=== PATIENT | male | born 1975 | race Caucasian/White ===

== ENCOUNTER 2016-09-14 21:29 | Inpatient (IN) | payer BC ==
--- NOTE | ~2016-09-14 | PUL ---
[facility] [address] [place]. [address] NAME: DARNELL SHRESTHA JR : 71 STATUS : DIS IN PAT#: [id number] AGE: 41 ADM/REG DATE : 09/14/16 MR#: [id number] REPORT SERV DATE: 09/20/16 DICTATED BY: PALAK TITUS DATE: 09/20/16 REPORT STATUS : Draft TRANSCRIBED BY: MODL DATE: 09/20/16 PULMONARY FUNCTION TEST START DATE OF TESTIN09/16/2016 END DATE OF TESTIN09/17/2016 COMMENTS: The study was initiated with the patient breathing room air. The patient was placed on supplemental oxygen at a flow rate of 2 L/minute, but it is unsure what time this occurred. RESULTS: Total valid sampling time 6 hours, 16 minutes, and 33 seconds. Total time with an oxygen saturation less than 88%, 2 hours 15 minutes, and 12 seconds. Oxygen desaturation event index 90.2. IMPRESSION: There was significant oxygen desaturation during this study. Additionally, the oxygen desaturation index was markedly elevated suggestive of possible sleep apnea. Recommend supplemental oxygen at a minimum flow rate of 2 L/minute. As noted above, the study was initiated on room air. Recommend repeating overnight oximetry if clinically indicated as it is unknown what proportion of the study was conducted on room air and what was conducted with the patient on supplemental oxygen. Additionally, the oxygen desaturation index is suspicious for possible sleep apnea. Recommend formal sleep study to further evaluate if clinically indicated. PS/MANUEL Palak Titus M.D. / [id number] CC: MD Jermaine London M.D.
--- NOTE | ~2016-09-14 | PUL ---
[facility] [address] [place]. [address] NAME: DARNELL SHRESTHA JR : 71 STATUS : DIS IN PAT#: [id number] AGE: 41 ADM/REG DATE : 09/14/16 MR#: [id number] REPORT SERV DATE: 09/22/16 DICTATED BY: CHRISSY TITUS DATE: 09/19/16 REPORT STATUS : Draft TRANSCRIBED BY: MODL DATE: 09/19/16 PULMONARY FUNCTION TEST START DATE OF TESTIN09/16/2016. END DATE OF TESTIN09/17/2016. COMMENTS: Study started with the patient breathing room air. The patient was placed on supplemental oxygen at a flow rate of 2 L/minute, but the time that this was done is not available. RESULTS: 1. Total valid sampling time 6 hours, 16 minutes, and 33 seconds. 2. Total time with an oxygen saturation less than 88%, 2 hours 15 minutes, and 12 seconds. 3. Oxygen desaturation index 90.2. IMPRESSION: There is significant oxygen desaturation during this study conducted while the patient was breathing room air followed by supplemental oxygen at a flow rate of 2 L/minute. The oxygen desaturation is elevated suggestive of likely obstructive sleep apnea. I recommend supplemental oxygen at a flow rate of minimum of 2 L/minute with sleep. Additionally, I recommend repeat oximetry with patient on supplemental oxygen at a flow rate of 2 L/minute and formal sleep study if clinically indicated. PS/MODL Chrissy Titus M.D. / [id number] CC: MD Jermaine London M.D.
--- NOTE | ~2016-09-14 | CN ---
Consultation Report [facility] [address] [place]. [address] NAME: DARNELL KELSEY JR : 71 STATUS : ADM IN PAT#: [id number] AGE: 41 ADM/REG DATE : 09/14/16 MR#: [id number] REPORT SERV DATE: 09/16/16 DICTATED BY: DATE: REPORT STATUS : Draft TRANSCRIBED BY: MODL DATE: 09/15/16 CONSULTATION DATE OF CONSULTATION: 09/15/2016 REASON FOR CONSULTATION: Acute kidney injury. HISTORY OF PRESENT ILLNESS: Mr. Kelsey is a 41-year-old white male with CKD stage 4 in the setting of diabetes with significant nephropathy. He had 8 g proteinuria last summer. He has only been to our office one time. He states he has not followed up because of his work schedule, as he was supposed to. He was just released from [facility] yesterday where he was diuresed, creatinine before his discharge was up to 3.1, his baseline being 2.8. He states he went home one hour and presented back to the emergency room here at [facility]. His main workup was originally for TIA complaints; however, he complained of this edema that is no better than when he went in, so therefore they admitted him asked us to see him for that. Creatinine today is up to 3.4. He has been diuresed overnight with Bumex drip with 1450 of urine out. He is experiencing shortness of breath, dyspnea on exertion, states he can barely walk across the room, complains of edema. No chest pain, tightness, or pressure. Those are his main complaints today. He denied any urinary difficulty prior to this. PAST MEDICAL HISTORY: He is known to have CKD related to diabetes, hyperlipidemia with pancreatitis related to it. He has had to have a partial pancreatectomy before that. He has type 1 diabetes. CHF is documented, however, he has a normal EF and obstructive sleep apnea, for which he does not wear a CPAP. He has never had an overnight sleep study; however, he did, while he was at [facility], have an overnight study, Dr. Epps up there, and he was having suboptimal oxygenation there despite being on 3-1/2 L of oxygen. He was sent home without any oxygen. Hypertension, hypothyroidism, and cellulitis. He has had pericarditis, neuropathy, and Negrete palsy. 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 No tobacco, alcohol, or illicit drug use. ALLERGIES: NONE. HOME MEDICATIONS: According to the discharge summary there, he had been out of his medicines prior to that hospitalization and was noncompliant, and medicines are listed as amlodipine, atorvastatin, Bumex, Coreg, gabapentin, hydralazine, Levemir, Humulin R, levothyroxine and some [id number] sleep medicine. REVIEW OF SYSTEMS: A 12-point review of systems was obtained, negative with the exception of that in HPI. PHYSICAL EXAMINATION: VITAL SIGNS: Temp 98.1, blood pressure 124/76, pulse 74, respiratory rate 20, O2 saturation Consultation Report [place] [id number] [facility] [place]. [address] NAME: DARNELL KELSEY JR : 71 STATUS : ADM IN PAT#: [id number] AGE: 41 ADM/REG DATE : 09/14/16 MR#: [id number] REPORT SERV DATE: 09/16/16 DICTATED BY: DATE: REPORT STATUS : Draft TRANSCRIBED BY: MODL DATE: 09/15/16 92% on 3 L. GENERAL: This is a chronically ill-appearing, looking much older than stated age, white male. He is awake, alert, and oriented, answers questions appropriately. HEENT: Normocephalic and atraumatic. Conjunctivae clear. Sclerae anicteric. Pupils are equal and round. Oral mucosa is moist. NECK: Thick. I did not see any lymphadenopathy. LUNGS: Respirations are even and unlabored. Breath sounds clear to auscultation. HEART: Rate is regular. Heart tones are distant. I did not hear a murmur, rub, or gallop. ABDOMEN: Obese. Soft. Nontender. No masses. No CVA tenderness. BACK: Within normal limits. EXTREMITIES: He has 2+ edema bilaterally all the way up to his back. SKIN: Pale, warm, and dry. No unusual rashes or skin lesions. NEUROLOGIC: No focal deficits. Mood and affect, pleasant and appropriate. PERTINENT LABS AND X-RAYS: Chest x-ray with some pulmonary vascular congestion, and his ultrasound on the left was obscured but the right was okay. BNP of 751. WBC 6, H and H 9 and 32, platelets 230,000. Sodium 141, potassium 4.3, chloride 107, CO2 of 24, BUN 55, creatinine of 3.4, glucose 278, calcium 7.9, magnesium of 2.7, phosphorus 5.2, albumin is 2.1. LFTs are unremarkable. Troponin 0.02. TSH 30.6. IMPRESSION: 1. Acute kidney injury on chronic kidney disease. 2. Normal EF. 3. Diabetes. 4. Hypertension. 5. Obstructive sleep apnea. PLAN/RECOMMENDATION: He has a history of 8 g proteinuria with his albumin down to 2.1 and been noncompliant with medications and office visit followups. Suspect that he has progression of his kidney disease that is cause of this worsening uncontrolled edema, especially in light of the fact of his normal EF and no mention of diastolic dysfunction. We will try to diurese him and follow labs. I would expect his new baseline to probably be over 3 in order to keep this volume controlled. Follow I's and O's and labs. We will need further discussions as I think he will progress to end-stage renal disease within the next one to two years and he will need to follow up closely in CKD Clinic. So he can be prepared for dialysis, avoid nephrotoxins, would not add LAUREL inhibitor at this point given his noncompliance and but it would be nice if he would be compliant and we could do an LAUREL inhibitor to see if we can slow the progression of his disease. We will follow along with you. Thank you for the consultation. SOFIA/YULISAL Consultation Report [facility] [address] [place]. [address] NAME: HENRIETTADARNELL SRIDHAR ALEXANDER : 71 STATUS : ADM IN [facility]#: [id number] AGE: 41 ADM/REG DATE : 09/14/16 MR#: [id number] REPORT SERV DATE: 09/16/16 DICTATED BY: DATE: REPORT STATUS : Draft TRANSCRIBED BY: MODJie DATE: 09/15/16 SHARITA Killian / [id number] CC: Duarte Kamara M.D.
--- NOTE | ~2016-09-14 | HP ---
History And Physical [facility] [address] [place]. [address] NAME: DARNELL SHRESTHA JR : 71 STATUS : ADM IN PAT#: [id number] AGE: 41 ADM/REG DATE : 09/14/16 MR#: [id number] REPORT SERV DATE: 09/15/16 DICTATED BY: PHIL HOOVER DATE: 09/15/16 REPORT STATUS : Draft TRANSCRIBED BY: MODL DATE: 09/15/16 DATE OF ADMISSION: 09/14/2016 CHIEF COMPLAINT: A 41-year-old male presenting with progressive anasarca despite recent hospitalization. HISTORY OF PRESENTING ILLNESS: The patient's history was obtained through careful interview with the patient, coupled with review of [facility] and [facility] medical records. The patient, for several weeks now, has had progressive lower extremity edema that has not only caused debilitating swelling of his legs up to his hips and pelvis, but also has begun to develop into abdominal wall edema and abdominal distention. He presented to [facility] on 09/11/2016 and was given a presumptive diagnosis of heart failure exacerbation, placed on diuretic and hospitalized through 09/14/2016, but despite these interventions, as he describes, had "no help" at all in his swelling, and he states that he left the hospital in about the same condition as he entered the hospital (at least by his own description). He admits to leg pain as his main complaint, aching, cramping quality, related to his massive lower extremity edema, seven to 8 out of 10 severity. He describes shortness of breath characterized by dyspnea on exertion, orthopnea, and paroxysmal nocturnal dyspnea. He describes abdominal discomfort related to swelling and distention. He also agrees that he has to strain to urinate and has difficulty with urine flow. He states that his diabetes is chronically poorly controlled with most blood sugars being over 300, but over the last few months, he occasionally even has blood sugars greater than 600. He has felt shaky and "too weak to walk" for about a week or more, and when he was discharged from the hospital, he was worried about falling. REVIEW OF SYSTEMS: Otherwise, a 14-point review of systems was obtained and was negative. PAST MEDICAL HISTORY: 1. Diastolic and systolic congestive heart failure, history of ejection fraction 40%. 2. Diabetes. 3. Pancreatitis. 4. Negrete's palsy. 5. Hypothyroidism. 6. Chronic kidney disease stage IV, baseline creatinine of 2.8 but does not see a History And Physical [address] [address] NAME: DARNELL SHRESTHA JR : 71 STATUS : ADM IN PAT#: [id number] AGE: 41 ADM/REG DATE : 09/14/16 MR#: [id number] REPORT SERV DATE: 09/15/16 DICTATED BY: PHIL HOOVER DATE: 09/15/16 REPORT STATUS : Draft TRANSCRIBED BY: MANUEL DATE: 09/15/16 street[address] starter. 7. Hypertension. 8. Elevated cholesterol. 9. Leg cellulitis and abscess. 10.Neuropathy. 11.Pericarditis. 12.MRSA. 13.Previous records show proteinuria. PAST SURGICAL HISTORY: 1. Cholecystectomy. 2. Partial pancreatectomy. 3. Partial colon resection for diverticulitis. 4. Multiple leg abscesses that had to have incision and drainage. ALLERGIES: NO KNOWN DRUG ALLERGIES. 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 Lives alone. Is . Has one 20-year-old daughter, who lives in [place], [place]. No tobacco abuse. No alcohol abuse. FAMILY HISTORY: Diabetes and heart disease. CURRENT MEDICATIONS: Include Norvasc 5 mg p.o. b.i.d., Lipitor 20 mg p.o. daily, Bumex 2 mg p.o. b.i.d., Coreg 25 mg p.o. b.i.d., Neurontin 300 mg p.o. t.i.d., hydralazine 50 mg p.o. t.i.d., Levemir 20 units subcutaneous twice a day, regular insulin 10 units subcutaneous before meals, levothyroxine 100 mcg p.o. daily, and sleep aid medication. PHYSICAL EXAMINATION: VITAL SIGNS: Temperature 97.4, pulse 87, blood pressure 164/97, respiratory rate 20, O2 saturation 99% on room air. GENERAL: A chronically ill-appearing male, in evidence of distress secondary to volume overload discomfort. HEENT: Pupils equal, round, and reactive to light. No conjunctival pallor. No scleral icterus. Nares are patent. Oropharynx is clear of obstruction. Moist mucous membranes. NECK: Trachea midline. No thyromegaly. LYMPH: No cervical lymphadenopathy. No supraclavicular lymphadenopathy. RESPIRATORY: The patient has wet rales at the base of his lungs. No wheezes, no rhonchi. A labored respiratory effort. CARDIOVASCULAR: Regular rate and rhythm. No murmurs, rubs, gallops. The patient has massive anasarca, pitting edema of his lower extremities that is tight and extreme extending all the way up into his pelvis and his groin with pitting edema of his abdominal wall as well. ABDOMEN: The patient has a central pattern of morbid obesity. A distended abdomen. Tender throughout. Nonfocal. No hepatosplenomegaly can be appreciated. DERMATOLOGICAL: Warm and dry. EXTREMITIES: No pallor, no cyanosis. History And Physical [address] [address] NAME: DARNELL SHRESTHA JR : 71 STATUS : ADM IN [facility]#: [id number] AGE: 41 ADM/REG DATE : 09/14/16 MR#: [id number] REPORT SERV DATE: 09/15/16 DICTATED BY: PHIL HOOVER DATE: 09/15/16 REPORT STATUS : Draft TRANSCRIBED BY: MANUEL DATE: 09/15/16 PSYCHIATRIC: Normal affect. Good mood. Alert and oriented x3. LABORATORY DATA: White blood cell count 5.3, hemoglobin 9.9, hematocrit 34.8, platelets 189. Sodium 139, potassium 4.4, chloride 105, bicarb 25, BUN 53, creatinine 3.63, glucose 389, albumin 2.1, troponin 0.03. Brain natriuretic peptide 954. INR 1.1. STUDIES: 1. Chest x-ray by my own evaluation shows mild pulmonary edema, cardiomegaly. 2. EKG by my own evaluation shows sinus rhythm, right bundle-branch block. 3. A Goss catheter was placed and showed a postvoid residual of greater than 800. ASSESSMENT AND PLAN: 1. Diastolic and systolic congestive heart failure exacerbation. Recheck an echocardiogram. The patient has anasarca. Place on IV Bumex drip, nitro paste, on Coreg. Holding LAUREL inhibitor and ARB secondary to worsening renal disease. 2. Acute kidney injury on chronic kidney disease stage 4. Check renal ultrasound. Place a Goss catheter. Obtain Nephrology consult. Check serum protein electrophoresis. 3. Hypoalbuminemia with history of proteinuria. We will check a 24-hour urine protein. Question possible underlying nephrotic syndrome? Check serum protein electrophoresis and ESR. 4. Uncontrolled diabetes. Check hemoglobin A1c. Increase basal insulin. Place on aggressive sliding scale insulin. Obtain a assistant health educator consult. LISHA/MODJie Phil Hoover M.D. / [id number] CC: Duarte Kamara M.D.
--- NOTE | ~2016-09-14 | DS ---
Discharge Summary [facility] [address] [place]. [address] NAME: DARNELL SHRESTHA JR : 71 STATUS : DIS IN PAT#: [id number] AGE: 41 ADM/REG DATE : 09/14/16 MR#: [id number] REPORT SERV DATE: 09/22/16 DICTATED BY: OLYA ABURTO DATE: 09/18/16 REPORT STATUS : Draft TRANSCRIBED BY: MODL DATE: 09/18/16 ADMISSION DATE: 09/14/2016 DISCHARGE DATE: 09/18/2016 REASON FOR ADMISSION: Volume overload. HISTORY OF PRESENT ILLNESS: Please refer to Dr. Emmanuel Lisa's history and physical dated 09/15/2016 for complete details regarding the patient's admission. The patient was admitted to the Hospitalist Service for management of volume overload and his acute kidney injury on CKD, stage 4. HOSPITAL COURSE: The patient had uncomplicated hospital course. He has been diagnosed with diastolic and systolic heart failure; however, he had an echocardiogram, which did not demonstrate any systolic or diastolic heart failure, but did show some moderate pulmonary hypertension. He presented with volume overload secondary to CKD along with pulmonary hypertension. He was diuresed on Bumex. Nephrology was consulted. He had been switched over to 50 mg of torsemide twice a day the day prior to discharge. His kidney function came back at it's baseline. Of note, he presented with a creatinine of 3.63 and it got down to 2.66. He was weaned off oxygen. He did not meet criteria for home O2. His insulin was managed with his insulin regimen. Dr. Rivers was concerned that he is working his way towards dialysis and had consulted Vascular Surgery, who will place an AV fistula in the outpatient basis. The patient is scheduled for an outpatient appointment to have an AV fistula placed and Vascular Surgery had signed off. He is stable for discharge. We discharged him home today in stable condition. DISCHARGE DIAGNOSES: 1. Volume overload secondary to pulmonary hypertension and chronic kidney disease, now resolved. 2. Likely obstructive sleep apnea, causing his pulmonary hypertension. 3. No congestive heart failure. 4. Insulin-dependent diabetes with diabetic nephropathy with 10.5 g of proteinuria. 5. Acute kidney injury on chronic kidney disease, stage 4, now at baseline. 6. Morbid obesity. PROCEDURES: Include consultation with Vascular Surgery and Nephrology. Upper extremity duplex. Renal ultrasound. DISCHARGE MEDICATIONS: Include Lipitor 20 mg at bedtime, carvedilol 25 mg twice a day, Neurontin 300 mg three times a day, insulin Levemir 30 units twice a day with insulin regular 10 units before meals, levothyroxine 100 mcg daily, torsemide 50 mg twice a day, hydralazine 50 mg every 8 hours, felodipine 5 mg twice a day. The patient will follow up with Vascular Surgery for AV fistula placement and with Nephrology. Spending over 30 minutes in discharge planning and coordination of care. Discharge Summary [address] [place]. [address] NAME: DARNELL SHRESTHA JR : 71 STATUS : DIS IN PAT#: [id number] AGE: 41 ADM/REG DATE : 09/14/16 MR#: [id number] REPORT SERV DATE: 09/22/16 DICTATED BY: OLYA ABURTO DATE: 09/18/16 REPORT STATUS : Draft TRANSCRIBED BY: MANUEL DATE: 09/18/16 CASA/MANUEL Olya Aburto MD / [id number] CC: MD Jermaine London M.D. Claude Galphin, M.D. Robert Berglund, M.D.
[2016-09-14 19:59] LABS: BASOPHILS 0.4 %; BASOPHILS ABSOLUTE 0.02 10/3/uL (0.0-0.16); EOSINOPHILS 2.3 %; EOSINOPHILS ABSOLUTE 0.12 10/3/uL (0.0-0.53); ER CBC TAT 0 Hrs 05 Mins; HEMATOCRIT 34.8 % (40.0-51.0); HEMOGLOBIN 9.9 g/dL (13.6-17.8); IMMATURE GRANULOCYTES 0.6 %; IMMATURE GRANULOCYTES ABSOLUTE 0.03 10/3/uL (0.0-0.11); LYMPHOCYTES 21.6 %; LYMPHOCYTES ABSOLUTE 1.14 10/3/uL (0.67-4.30); MEAN CORPUS HGB CONC 28.4 g/dL (32.0-36.0); MEAN CORPUSCULAR HEMOGLOB 22.6 pg (26.0-34.0); MEAN CORPUSCULAR VOLUME 79.3 fL (80-100); MEAN PLATELET VOLUME 10.3 fL (9.2-13.0); MONOCYTES 14.2 %; MONOCYTES ABSOLUTE 0.75 10/3/uL (0.21-1.20); NEUTROPHILS 60.9 %; NEUTROPHILS ABSOLUTE 3.21 10/3/uL (2.02-8.40); PLATELET COUNT 189 10/3/uL (150-400); RBC DISTRIBUTION WIDTH 17.3 % (12.0-16.0); RED CELL COUNT 4.39 10/6/uL (4.7-6.1); WHITE BLOOD CELLS 5.3 10/3/uL (4.5-10.5)
[2016-09-14 20:01] LABS: MANUAL DIFF NO %
[2016-09-14 20:07] LABS: INTERNATIONAL NORMAL RATI 1.1 UNITS (-); PARTIAL THROMBO TIME 29.6 SEC (22.5-37.2); PROTIME (NOT ORD) 14.2 SEC (12.0-14.5)
[2016-09-14 20:17] LABS: BUN (BLOOD UREA NITROGEN) 53 MG/DL (6-23); CALCIUM, SERUM 7.5 MG/DL (8.5-10.4); CHEST PAIN PROFILE TAT 0 Hrs 23 Mins; CHLORIDE, SERUM 105 MMOL/L (96-112); CO2 (CARBON DIOXIDE) 25 MMOL/L (24-34); CREATININE 3.63 MG/DL (0.70-1.30); GFR AFRICAN AMERICAN 22 ML/MIN (>=60); GFR NON AFRICAN AMERICAN 19 ML/MIN (>=60); GLUCOSE, SERUM 389 MG/DL (60-99); POTASSIUM, SERUM 4.4 MMOL/L (3.5-5.3); SODIUM, SERUM 139 MMOL/L (135-148); TROPONIN I 0.03 NG/ML (<0.05)
[~2016-09-14 21:29] MED LIST: *UNABLE1; ACET500CAP PO; ALTA2.5 PO; APRES10B PO; APRES25 PO; ASA5GR PO; ASAB PO; AUG500 PO; BUM1 PO; BUM2; BUM2 PO; CARDCD180 PO; CARDIZEM LA180 MG PO; COLCH6 PO; COREG25 PO; CRESTOR20 MG PO; CRESTOR40 MG PO; DURICEF PO; FLOMAX4 PO; GLUCOTROL5 PO; HUMALOG SC; HUMULIN R1 ML SQ; HYDROCHLOROT12.5 MG PO; IMDUR30 PO; IMDUR60 PO; INSNOV7030 SC; INSPRA25 PO; K-TABS10 MEQ PO; KLOR-CON M2020 MEQ PO; L20 PO; L80 PO; LANTUS SC; LEVEMFLXPN SC; LEVEMIR SC; LEVOTHYROXIN100 MCG PO; LEVOTHYROXIN88 MCG PO; LIPITOR20 PO; MICROZIDE PO; NEUR100 PO; NEUR300 PO; NORV10 PO; NORV5 PO; NOVOLOG SC; NOVOLOG SQ; NOVOPEN SC; ONGLYZA5 MG PO; OTC SLEEP AID PO; OTC SLEEP MED PO; PRILOSEC40 MG PO; PRIN10 PO; PRIN5 PO; PROTONIX20 MG PO; T PO; Z5 PO; ZAROX2.5B PO; ZOCOR40 PO; ZYVOXPO PO; [UNRECOGNIZED DRUG - OTHER]
[2016-09-15 10:22] LABS: BASOPHILS 0.3 %; BASOPHILS ABSOLUTE 0.02 10/3/uL (0.0-0.16); EOSINOPHILS 2.5 %; EOSINOPHILS ABSOLUTE 0.15 10/3/uL (0.0-0.53); HEMATOCRIT 32.9 % (40.0-51.0); HEMOGLOBIN 9.5 g/dL (13.6-17.8); IMMATURE GRANULOCYTES 0.3 %; IMMATURE GRANULOCYTES ABSOLUTE 0.02 10/3/uL (0.0-0.11); LYMPHOCYTES 20.3 %; LYMPHOCYTES ABSOLUTE 1.22 10/3/uL (0.67-4.30); MANUAL DIFF NO %; MEAN CORPUS HGB CONC 28.9 g/dL (32.0-36.0); MEAN CORPUSCULAR HEMOGLOB 22.9 pg (26.0-34.0); MEAN CORPUSCULAR VOLUME 79.3 fL (80-100); MONOCYTES ABSOLUTE 0.78 10/3/uL (0.21-1.20); NEUTROPHILS 63.6 %; NEUTROPHILS ABSOLUTE 3.83 10/3/uL (2.02-8.40); PLATELET COUNT 203 10/3/uL (150-400); RBC DISTRIBUTION WIDTH 17.4 % (12.0-16.0); RED CELL COUNT 4.15 10/6/uL (4.7-6.1)
[2016-09-15 10:29] LABS: INTERNATIONAL NORMAL RATI 1.2 UNITS (-); PROTIME (NOT ORD) 14.8 SEC (12.0-14.5)
[2016-09-15 10:41] LABS: T PROTEIN (ELECT)(NOT OR 5.9 G/DL (6.0-8.5)
[2016-09-15 10:43] LABS: B NATRIURETIC PEPTIDE (BNP) 751.2 PG/ML (< 100.0)
[2016-09-15 10:49] LABS: A/G RATIO 0.5 (0.7-1.9); ALBUMIN 2.1 G/DL (3.5-5.0); BUN (BLOOD UREA NITROGEN) 55 MG/DL (6-23); CALCIUM, SERUM 7.9 MG/DL (8.5-10.4); CHLORIDE, SERUM 107 MMOL/L (96-112); CO2 (CARBON DIOXIDE) 24 MMOL/L (24-34); CREATININE 3.49 MG/DL (0.70-1.30); GFR AFRICAN AMERICAN 23 ML/MIN (>=60); GFR NON AFRICAN AMERICAN 20 ML/MIN (>=60); GLOBULIN 4.2 G/DL (2.5-4.1); PHOSPHORUS, SERUM 5.2 MG/DL (2.5-4.5); POTASSIUM, SERUM 4.3 MMOL/L (3.5-5.3); SGOT(AST) 11 U/L (5-40); SGPT(ALT) 15 U/L (5-65); SODIUM, SERUM 141 MMOL/L (135-148); TOTAL BILIRUBIN 0.2 MG/DL (0-1.2); TOTAL PROTEIN 6.3 G/DL (6.0-8.5); TROPONIN I 0.02 NG/ML (<0.05)
[2016-09-15 10:50] LABS: ALKALINE PHOSPHATASE 114 U/L (45-117); GLUCOSE, SERUM 278 MG/DL (60-99)
[2016-09-15 11:11] LABS: SED RATE 66 MM/HR (0-15)
[2016-09-15 12:51] LABS: GLYCOHEMOGLOBIN (HbA1c) 8.5 % (4.7-6.1)
[2016-09-15 19:02] LABS: ASCORBIC ACID (UR NOT ORDER) NEG (NEG); BILIRUBIN, URINE NEGATIVE (NEG); KETONE, URINE NEGATIVE (NEG); WBC (NOT ORDERED) (RFLEX) 12 (0-5)
[2016-09-15 19:04] LABS: LEUKOCYTE ESTERASE(NOT OR SM (NEG)
[2016-09-16 05:54] LABS: ALBUMIN 2.1 G/DL (3.5-5.0); BUN (BLOOD UREA NITROGEN) 62 MG/DL (6-23); CALCIUM, SERUM 7.3 MG/DL (8.5-10.4); CHLORIDE, SERUM 112 MMOL/L (96-112); CO2 (CARBON DIOXIDE) 24 MMOL/L (24-34); CREATININE 3.36 MG/DL (0.70-1.30); GFR AFRICAN AMERICAN 25 ML/MIN (>=60); GFR NON AFRICAN AMERICAN 21 ML/MIN (>=60); GLUCOSE, SERUM 149 MG/DL (60-99); PHOSPHORUS, SERUM 5.6 MG/DL (2.5-4.5); POTASSIUM, SERUM 4.4 MMOL/L (3.5-5.3); SODIUM, SERUM 145 MMOL/L (135-148)
[2016-09-16 07:53] LABS: T.P. URINE (NOT ORDER RAN 420.3 MG/DL
[2016-09-16 09:49] LABS: A/G 0.82 RATIO (0.9-2.10); ALBUMIN (ELECTRO) 2.66 GM/DL (3.2-5.5); ALPHA 1 (ELECTRO) 0.27 GM/DL (0.1-0.4); ALPHA 1 RELAT % (NOT ORD) 4.6 % (1.0-4.0); ALPHA 2 (ELECTRO) 1.04 GM/DL (0.5-1.10); ALPHA 2 RELAT % 17.7 % (4.5-26.0); BETA GLOBULIN (SPE) 0.92 GM/DL (0.60-1.30); BETA RELATIVE % 15.6 % (9.0-22.0); GAMMA GLOBULIN (SPE) 1.01 G/DL (0.70-1.60); GAMMA RELAT % 17.1 % (6.0-22.0)
[2016-09-16 14:21] LABS: CK-MB 6.3 NG/ML; TROPONIN I 0.02 NG/ML (<0.05)
[2016-09-16 14:22] LABS: CKMB INDEX (NOT ORD) 4.1
[2016-09-17 05:48] LABS: BASOPHILS 0.3 %; BASOPHILS ABSOLUTE 0.02 10/3/uL (0.0-0.16); EOSINOPHILS 2.8 %; EOSINOPHILS ABSOLUTE 0.19 10/3/uL (0.0-0.53); HEMATOCRIT 32.9 % (40.0-51.0); HEMOGLOBIN 9.4 g/dL (13.6-17.8); IMMATURE GRANULOCYTES 0.3 %; IMMATURE GRANULOCYTES ABSOLUTE 0.02 10/3/uL (0.0-0.11); LYMPHOCYTES 22.9 %; LYMPHOCYTES ABSOLUTE 1.57 10/3/uL (0.67-4.30); MEAN CORPUS HGB CONC 28.6 g/dL (32.0-36.0); MEAN CORPUSCULAR HEMOGLOB 22.8 pg (26.0-34.0); MEAN CORPUSCULAR VOLUME 79.9 fL (80-100); MEAN PLATELET VOLUME 10.1 fL (9.2-13.0); MONOCYTES ABSOLUTE 0.89 10/3/uL (0.21-1.20); NEUTROPHILS 60.7 %; NEUTROPHILS ABSOLUTE 4.18 10/3/uL (2.02-8.40); PLATELET COUNT 210 10/3/uL (150-400); RBC DISTRIBUTION WIDTH 17.6 % (12.0-16.0); RED CELL COUNT 4.12 10/6/uL (4.7-6.1); WHITE BLOOD CELLS 6.9 10/3/uL (4.5-10.5)
[2016-09-17 05:49] LABS: MANUAL DIFF NO %
[2016-09-17 06:00] LABS: ALBUMIN 2.1 G/DL (3.5-5.0); BUN (BLOOD UREA NITROGEN) 63 MG/DL (6-23); CHLORIDE, SERUM 110 MMOL/L (96-112); CO2 (CARBON DIOXIDE) 26 MMOL/L (24-34); CREATININE 2.96 MG/DL (0.70-1.30); GFR AFRICAN AMERICAN 29 ML/MIN (>=60); GFR NON AFRICAN AMERICAN 25 ML/MIN (>=60); PHOSPHORUS, SERUM 5.2 MG/DL (2.5-4.5); POTASSIUM, SERUM 4.3 MMOL/L (3.5-5.3); SODIUM, SERUM 143 MMOL/L (135-148)
[2016-09-17 06:02] LABS: GLUCOSE, SERUM 90 MG/DL (60-99)
[2016-09-17 17:05] LABS: ALLENS TEST Pos; CARBOXYHEMOGLOBIN 1.1 % (0-3); HCO3 (ACTUAL BICARBONATE) 23.9 MEQ/L (23-27); HEMOBLOGIN CONTENT 10.3 G/DL (14-18); INSTRUMENT SERIAL # 8083; METHEMOGLOBIN 0.3 % (0-3); O2 CONTENT 13.4 VOL% (18-24); OPERATOR ID 35785; PCO2 (CO2 TENSION) 41 MMHG (35-45); PO2 (O2 TENSION) 72 MMHG (79-93); SAMPLE Arterial; pH 7.39 (7.37-7.43)
[2016-09-18 06:34] LABS: BASOPHILS 0.4 %; BASOPHILS ABSOLUTE 0.03 10/3/uL (0.0-0.16); EOSINOPHILS 3.4 %; EOSINOPHILS ABSOLUTE 0.25 10/3/uL (0.0-0.53); HEMATOCRIT 34.3 % (40.0-51.0); HEMOGLOBIN 9.8 g/dL (13.6-17.8); IMMATURE GRANULOCYTES 0.4 %; IMMATURE GRANULOCYTES ABSOLUTE 0.03 10/3/uL (0.0-0.11); LYMPHOCYTES 21.3 %; LYMPHOCYTES ABSOLUTE 1.56 10/3/uL (0.67-4.30); MEAN CORPUS HGB CONC 28.6 g/dL (32.0-36.0); MEAN CORPUSCULAR VOLUME 80.3 fL (80-100); MEAN PLATELET VOLUME 10.1 fL (9.2-13.0); MONOCYTES 11.9 %; MONOCYTES ABSOLUTE 0.87 10/3/uL (0.21-1.20); NEUTROPHILS 62.6 %; NEUTROPHILS ABSOLUTE 4.58 10/3/uL (2.02-8.40); PLATELET COUNT 217 10/3/uL (150-400); RED CELL COUNT 4.27 10/6/uL (4.7-6.1); WHITE BLOOD CELLS 7.3 10/3/uL (4.5-10.5)
[2016-09-18 06:35] LABS: MANUAL DIFF NO %
[2016-09-18 06:41] LABS: BUN (BLOOD UREA NITROGEN) 61 MG/DL (6-23); CALCIUM, SERUM 7.9 MG/DL (8.5-10.4); CHLORIDE, SERUM 109 MMOL/L (96-112); CO2 (CARBON DIOXIDE) 25 MMOL/L (24-34); CREATININE 2.66 MG/DL (0.70-1.30); GFR AFRICAN AMERICAN 33 ML/MIN (>=60); GFR NON AFRICAN AMERICAN 28 ML/MIN (>=60); PHOSPHORUS, SERUM 4.7 MG/DL (2.5-4.5); POTASSIUM, SERUM 4.2 MMOL/L (3.5-5.3); SODIUM, SERUM 142 MMOL/L (135-148)
[2016-09-18 06:44] LABS: GLUCOSE, SERUM 157 MG/DL (60-99)
[2016-09-18] MEDS ORDERED: DEMA100 PO (10:47)
[2016-10-02] MEDS ORDERED: COREG25 PO (21:03)
[2016-10-02] MEDS ORDERED: NEUR300 PO (21:04)
[2016-10-02] MEDS ORDERED: LIPITOR20 PO (21:04)
[2016-10-02] MEDS ORDERED: NORV5 PO (21:04)
[2016-10-02] MEDS ORDERED: APRES50 PO (21:05)
[2016-10-02] MEDS ORDERED: LEVEMIR SC (21:05)
[2016-10-02] MEDS ORDERED: HUMALOG SC (21:05)
[2016-10-02] MEDS ORDERED: LEVOTHYROXIN100 MCG PO (21:05)
[2016-10-02] MEDS ORDERED: DEMA100 PO (21:06)
[2016-10-02] MEDS ORDERED: BUM2 PO (21:06)
[2016-10-02] MEDS ORDERED: OTC SLEEP MED PO (21:07)
[2016-10-02] MEDS ORDERED: T PO (21:07)
[2016-10-11] MEDS ORDERED: PCET (11:09)
[2016-10-11] MEDS ORDERED: Z5 PO (11:15)
[2016-10-11] MEDS ORDERED: DURICEF (11:17)
[2016-10-11] MEDS ORDERED: DEMA100 PO (11:20)
[2016-10-11] MEDS ORDERED: KDUR20 PO (11:21)
[2016-10-11] MEDS ORDERED: BEN25 PO (11:25)
== END 2016-09-18 13:13 | disposition home or self-care (01) | DRG 315 ==
LOC: ER 21:29 → 7NO 21:33
PROVIDERS: Emergency Medicine; Hospitalist; Internal Medicine; Internal Medicine Nephrology; Nurse Practitioner
DX: I27.2 Other secondary pulmonary hypertension (principal); N17.9 Acute kidney failure, unspecified; E10.22 Type 1 diabetes mellitus with diabetic chronic kidney disease; E10.65 Type 1 diabetes mellitus with hyperglycemia; N18.4 Chronic kidney disease, stage 4 (severe); Z68.41 Body mass index [BMI] 40.0-44.9, adult; E87.70 Fluid overload, unspecified; E66.01 Morbid (severe) obesity due to excess calories; E03.9 Hypothyroidism, unspecified; I12.9 Hypertensive chronic kidney disease with stage 1 through stage 4 chronic kidney disease, or unspecified chronic kidney disease
CPT/HCPCS: 36600; 70450; 71010; 76775; 80048; 80053; 80069; 81001; 81050; 82550; 82553; 82805; 82962; 83036; 83735; 83880; 84100; 84155; 84156; 84165; 84443; 84484; 85025; 85610; 85652; 85730; 93005; 93930; 94762; 99291; A9270-GY; J2405

== ENCOUNTER 2016-09-24 22:25 | Emergency (ER) | payer BC ==
[~2016-09-24 22:25] MED LIST changes: +DEMA100 PO
[2016-09-24 23:22] LABS: BASOPHILS 0.2 %; BASOPHILS ABSOLUTE 0.02 10/3/uL (0.0-0.16); EOSINOPHILS 2.6 %; EOSINOPHILS ABSOLUTE 0.22 10/3/uL (0.0-0.53); ER CBC TAT 0 Hrs 10 Mins; HEMOGLOBIN 9.7 g/dL (13.6-17.8); IMMATURE GRANULOCYTES ABSOLUTE 0.08 10/3/uL (0.0-0.11); LYMPHOCYTES 13.8 %; LYMPHOCYTES ABSOLUTE 1.16 10/3/uL (0.67-4.30); MEAN CORPUS HGB CONC 28.5 g/dL (32.0-36.0); MEAN CORPUSCULAR HEMOGLOB 22.1 pg (26.0-34.0); MEAN PLATELET VOLUME 9.8 fL (9.2-13.0); MONOCYTES 12.5 %; MONOCYTES ABSOLUTE 1.05 10/3/uL (0.21-1.20); NEUTROPHILS 69.9 %; NEUTROPHILS ABSOLUTE 5.89 10/3/uL (2.02-8.40); PLATELET COUNT 216 10/3/uL (150-400); RBC DISTRIBUTION WIDTH 17.7 % (12.0-16.0); RED CELL COUNT 4.38 10/6/uL (4.7-6.1); WHITE BLOOD CELLS 8.4 10/3/uL (4.5-10.5)
[2016-09-24 23:23] LABS: MANUAL DIFF NO %; MEAN CORPUSCULAR VOLUME 77.6 fL (80-100)
[2016-09-24 23:32] LABS: INTERNATIONAL NORMAL RATI 1.2 UNITS (-); PARTIAL THROMBO TIME 24.8 SEC (22.5-37.2); PROTIME (NOT ORD) 14.7 SEC (12.0-14.5)
[2016-09-24 23:39] LABS: CALCIUM, SERUM 7.2 MG/DL (8.5-10.4); CHEST PAIN PROFILE TAT 0 Hrs 27 Mins; CHLORIDE, SERUM 105 MMOL/L (96-112); CO2 (CARBON DIOXIDE) 26 MMOL/L (24-34); CREATININE 2.95 MG/DL (0.70-1.30); GFR AFRICAN AMERICAN 29 ML/MIN (>=60); GFR NON AFRICAN AMERICAN 25 ML/MIN (>=60); SODIUM, SERUM 142 MMOL/L (135-148); TROPONIN I 0.04 NG/ML (<0.05)
[2016-09-24 23:41] LABS: BUN (BLOOD UREA NITROGEN) 54 MG/DL (6-23); GLUCOSE, SERUM 388 MG/DL (60-99)
[2016-10-02] MEDS ORDERED: COREG25 PO (21:03)
[2016-10-02] MEDS ORDERED: LIPITOR20 PO (21:04)
[2016-10-02] MEDS ORDERED: NORV5 PO (21:04)
[2016-10-02] MEDS ORDERED: NEUR300 PO (21:04)
[2016-10-02] MEDS ORDERED: LEVOTHYROXIN100 MCG PO (21:05)
[2016-10-02] MEDS ORDERED: APRES50 PO (21:05)
[2016-10-02] MEDS ORDERED: LEVEMIR SC (21:05)
[2016-10-02] MEDS ORDERED: HUMALOG SC (21:05)
[2016-10-02] MEDS ORDERED: DEMA100 PO (21:06)
[2016-10-02] MEDS ORDERED: BUM2 PO (21:06)
[2016-10-02] MEDS ORDERED: OTC SLEEP MED PO (21:07)
[2016-10-02] MEDS ORDERED: T PO (21:07)
[2016-10-11] MEDS ORDERED: PCET (11:09)
[2016-10-11] MEDS ORDERED: Z5 PO (11:15)
[2016-10-11] MEDS ORDERED: DURICEF (11:17)
[2016-10-11] MEDS ORDERED: DEMA100 PO (11:20)
[2016-10-11] MEDS ORDERED: KDUR20 PO (11:21)
[2016-10-11] MEDS ORDERED: BEN25 PO (11:25)
== END 2016-09-25 02:20 | disposition home or self-care (01) ==
LOC: ER 22:25
PROVIDERS: Emergency Medicine
DX: I50.9 Heart failure, unspecified (principal); R60.1 Generalized edema; N18.9 Chronic kidney disease, unspecified; E11.9 Type 2 diabetes mellitus without complications; Z79.899 Other long term (current) drug therapy; Z79.82 Long term (current) use of aspirin
CPT/HCPCS: 71020; 80048; 83735; 83880; 84484; 85025; 85610; 85730; 93005; 96374; 99285

== ENCOUNTER 2016-11-20 06:44 | Observation (INO) | payer BC ==
--- NOTE | ~2016-11-20 | CN ---
Consultation Report [facility] [address] [place]. [address] NAME: DARNELL KELSEY JR : 71 STATUS : ADM Nikos PAT#: [id number] AGE: 41 ADM/REG DATE : 11/20/16 MR#: [id number] REPORT SERV DATE: 11/20/16 DICTATED BY: DARNELL DOWLING JR DATE: 11/20/16 REPORT STATUS : Draft TRANSCRIBED BY: MODL DATE: 11/20/16 NEPHROLOGY CONSULTATION DATE OF CONSULTATION: 11/20/2016 REASON FOR CONSULTATION: Renal failure. IMPRESSION: 1. Syncope, likely central vascular depletion associated with large volume diuresis. 2. Recent large volume diuresis, he has lost 50 pounds of fluid since mid September. 3. Diabetic nephropathy, chronic kidney disease stage 4 by estimating equations, though I suspect a timed urine collection would suggest his kidney function is stronger than that. 4. Proteinuria, documented at 7-8 g. 5. Hypertensive disorder. 6. Diabetes mellitus. DISCUSSION: He has achieved goal of therapy with improvement in his peripheral edema and loss of significant extracellular fluid. He seems, however, to have overdiuresed a bit. I believe the diuretic changes suggested by Dr. Mendoza are appropriate with reduction in the loop diuretic by 50% and every other day dosing with metolazone. He has been potassium repleted. I would think his previous home potassium dosage would suffice given the reduction in the loop and distal diuretic dosing. I am okay for him to be dismissed. I will seek earlier office appointment with him in two weeks. HISTORY OF PRESENT ILLNESS: Mr. Kelsey has been seen by various group members, his attending is Dr. Amador. He has diabetic nephropathy. He was seen at [facility], I believe, mid September with significant edema, and was sent out on large dose loop diuretic with a distally acting agent added as well. He was seen in office two weeks after dismissal and had achieved some improvement in his volume status, but he was little more azotemic and his distal diuretic dosing was reduced. He has had several recent falls without associated syncope, last night, he got up from bed and experienced syncope with a brief period of blacking out. He presents for evaluation. His labs looked different than when he was here before, but are reflective of the intended diuresis. He still has some peripheral edema. PAST MEDICAL HISTORY: 1. Adult-onset diabetes mellitus, insulin requiring. 2. Proteinuria 8 g without evidence of a paraproteinemia. 3. Chronic kidney disease stage 4 by estimating formulas, I predict he probably is stage 3. 4. Hypertension. 5. Anemia, not otherwise specified. Consultation Report [facility] [address] [place]. [address] NAME: DARNELL KELSEY SRIDHAR ALEXANDER : 71 STATUS : ADM Nikos PAT#: [id number] AGE: 41 ADM/REG DATE : 11/20/16 MR#: [id number] REPORT SERV DATE: 11/20/16 DICTATED BY: DARNELL DOWLING JR DATE: 11/20/16 REPORT STATUS : Draft TRANSCRIBED BY: MODJie DATE: 11/20/16 6. History of acute pancreatitis. 7. History of a remote pancreatectomy. 8. Exogenous obesity. 9. Significant hyperlipidemia. MEDICATIONS: Medications on entry were identified as torsemide 100 mg twice daily, amlodipine 5 mg twice daily, atorvastatin 20 mg nightly, carvedilol 25 mg twice daily, gabapentin 300 mg t.i.d., hydralazine 50 mg t.i.d., Levemir, lispro, levothyroxine 100 mcg daily, Tradjenta 5 mg daily, metolazone 5 mg daily, potassium 20 mEq twice daily. ALLERGIES: STATED TO "NONE." FAMILY HISTORY: Noncontributory to this admission. Family history includes diabetes and heart disease. 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 Lives alone. He is . Has one daughter. No tobacco use. No alcohol abuse. No recreational drugs. REVIEW OF SYSTEMS: Not otherwise notable for head, neck, pulmonary, cardiac, GI, , musculoskeletal, neurological, integumentary, or psychiatric complaints. PHYSICAL EXAMINATION: GENERAL: Overweight white male, who is awake, alert, answers questions appropriately. HEENT: Cranium, normocephalic. Pupils are equally round. No scleral icterus. No conjunctival injection. Pupils are equal. No periorbital edema. No epistaxis. No nasal discharge. Oral mucous membranes are moist. Facial symmetry is present. NECK: Without venous distention at 45 degrees. No carotid bruits heard. Adenopathy is not felt. Trachea is midline. LUNGS: Clear to auscultation with symmetrical air entry. No adventitial sounds. No increased work of breathing. HEART: Tones are regular without murmur, gallop, or rub being appreciated. PMI is not displaced. Gynecomasty is not present. ABDOMEN: Obese, soft, doughy, nontender. No hepatomegaly is palpable. No HJR seen. Bruits absent. Bowel sounds are present. There is no suprapubic fullness on palpation. GENITALIA: Deferred. RECTAL: Deferred. CVA: Nontender. EXTREMITIES: With venous stasis and venous congestive changes distally, trace to 1+ distal edema, and no peripheral cyanosis. There is distal hair loss on the bilateral lower extremities. NEUROLOGIC: Cognition and speech are normal. Strength is symmetrical. Gait is not currently tested. PSYCHIATRIC: Affect is normal. He is cooperative and interacts well with examiner. Fund of knowledge is good. Consultation Report [address] [place]. [address] NAME: HENRIETTADARNELL WALLER JR : 71 STATUS : ADM Nikos PAT#: [id number] AGE: 41 ADM/REG DATE : 11/20/16 MR#: [id number] REPORT SERV DATE: 11/20/16 DICTATED BY: DARNELL DOWLING JR. DATE: 11/20/16 REPORT STATUS : Draft TRANSCRIBED BY: MANUEL DATE: 11/20/16 INTEGUMENT: He has good turgor, some distal edema, some hyperemia distally in the lower extremities. No rashes observed. PERTINENT LABS: White count 5, hemoglobin 12, MCV 75. He has been demonstrated to be iron deficient in the office of [facility]. The BNP was 47. Sodium was 129, potassium 2.8, chloride 88, CO2 of 27, BUN 102, creatinine 3.7, calcium 7.7, magnesium 2.6, CPK 478. Troponin 0.02. Chest x-ray reviewed by me with very clear lung dean and a normal cardiac silhouette, no evidence of effusion. DF/MODL Darnell Dowling Jr, M.D. / [id number] CC: Jaziel Parry M.D. Pietro Mendoza M.D. Sheldon Amador M.D.
--- NOTE | ~2016-11-20 | HP ---
History And Physical [facility] [id number] [place]. [address] NAME: DARNELL SHRESTHA JR : 71 STATUS : ADM Nikos PAT#: [id number] AGE: 41 ADM/REG DATE : 11/20/16 MR#: [id number] REPORT SERV DATE: 11/20/16 DICTATED BY: ZEE SHEEHAN DATE: 11/20/16 REPORT STATUS : Draft TRANSCRIBED BY: MODJie DATE: 11/20/16 DATE OF ADMISSION: 11/20/2016 REASON FOR ADMISSION: Muscle cramps and syncope and dehydration. HISTORY OF PRESENT ILLNESS: This is a 41-year-old white male who is discharged from hospital on 09/22/[address] Aburto. He had been in the hospital for anasarca and weighed 310 pounds. He was given diuretics recently, had torsemide increased during the august hospitalization. His edema has improved, and he has lost weight down to 230 pounds though his baseline was 260 pounds prior to that time. His blood sugars are very erratic. This morning, he got up because he was having severe muscle cramps. He went to the kitchen to drink some water and set down the table. He stood up and felt dizzy. He knew he was following, could not catch himself, hit the ground, was out less than a split second. He was aware of things, altogether had no seizure, no loss of bowel or bladder continence and emerged very quickly from this. He says he believes he had a carotid ultrasound done in the past. He has a baseline creatinine of 6.3 and went down to 2.66 during the last hospitalization, now it is 3.5 again. Nephrology has seen him. He is to follow up with Dr. Amador in the next 5 to 10 days. He does not have an AV fistula yet and has not gone to hemodialysis just yet. He was discharged on Lipitor but he did not know what this was for and has had some leg cramping in the recent past though his potassium had been better. PAST MEDICAL HISTORY: Discharge summary reviewed indicates he had a history of some pulmonary hypertension. He has had diabetes for the last 20 years. He is on insulin. He has a history of the chronic kidney disease, longstanding history of hypertension, blood pressure was 180 when he arrived. He has had no coronary artery disease and cardiac catheterizations have been normal but his ejection fraction has been as low as 40% with some diastolic dysfunction in the past. He does have diabetes type 2. He has followed the [facility] in [place], probably the [facility] and Dr. Amador. He has a history of pancreatitis in 1995. He presented to the hospital and had a pancreatectomy and a cholecystectomy a few days later by Dr. Zee Berg because of the destruction of his pancreas he says. No records were available to confirm this. He did have hyperlipidemia with triglycerides over 2000 and total cholesterol of 1700 at that time. 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 Blood pressure has been elevated. He has had leg cellulitis and abscesses in the past and now has stasis changes. History of pericarditis, MRSA, and proteinuria. History And Physical [address] [address] NAME: DARNELL SHRESTHA SRIDHAR : 71 STATUS : ADM Nikos PAT#: [id number] AGE: 41 ADM/REG DATE : 11/20/16 MR#: [id number] REPORT SERV DATE: 11/20/16 DICTATED BY: ZEE SHEEHAN DATE: 11/20/16 REPORT STATUS : Draft TRANSCRIBED BY: MANUEL DATE: 11/20/16 ALLERGIES: NONE ARE KNOWN. SOCIAL HISTORY: He was for 1 year and after about 20 years. His is a lesbian, having been to another female partner twice in the last 20 years. She has no contact with the daughter. Presently, she is in skilled nursing, serving time for arson in attempting to burn down her lover's house. He has had little contact with her over the last 20 years. He attends the [employer] in [place]. 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 His 20- year-old daughter has been raised by he and his mother. He does not smoke cigarettes or take any alcohol. 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 FAMILY HISTORY: He had one brother and a half sister. Brother has diabetes. His father and mother both had diabetes as well. His discharge medications on 09/22/2016, have not changed and were listed as follows: 1. Lipitor 20 mg at bedtime. 2. Carvedilol 25 mg p.o. b.i.d. 3. Neurontin 300 mg p.o. t.i.d. 4. Levemir 30 units subcu b.i.d. with regular insulin 10 units before each meal. 5. Levothyroxine 100 mcg p.o. daily. 6. Torsemide 50 mg twice a day. 7. Hydralazine 50 mg p.o. q.8 hours. 8. Felodipine 5 mg b.i.d. Amlodipine 5 mg p.o. b.i.d., apparently has been substituted and metolazone 5 mg daily added along with increase in the torsemide to 100 mg p.o. b.i.d. since the discharge list was given. He was to follow up with Vascular Surgery for AV fistula and with Nephrology. PHYSICAL EXAMINATION: GENERAL: Obese white male, in no acute distress, partially sedated by the Dilaudid given by Dr. Cornell earlier. His speech is fluid and goal-directed but abundant. VITAL SIGNS: His blood pressure initially on arrival was 181/110 with severe pain with the leg cramps, now down to 140/84, with a heart rate of 75, respiratory rate 18 afebrile, his respiratory rate was 16, after the Dilaudid, and oxygen saturation 99%. HEENT: EOMI. Sclerae clear. Conjunctivae pink. NECK: No bruit without any JVD. CHEST: Clear to A and P. HEART: Regular S1, S2 without any murmur, gallop, or click. ABDOMEN: Obese, nontender. Bowel sounds positive. No HSM. EXTREMITIES: Have stasis changes in the lower extremities with chronic edema. Distal pulses however palpable, dorsalis pedis bilaterally. History And Physical [address] [address] NAME: DARNELL SHRESTHA : 71 STATUS : ADM Nikos PAT#: [id number] AGE: 41 ADM/REG DATE : 11/20/16 MR#: [id number] REPORT SERV DATE: 11/20/16 DICTATED BY: ZEE SHEEHAN DATE: 11/20/16 REPORT STATUS : Draft TRANSCRIBED BY: MANUEL DATE: 11/20/16 NEUROLOGIC: His feet do not move to plantar stimulation. No DTRs are elicitable in the knees and ankles. 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 Coordination is intact. Speech is cogent, goal-directed, and fluid. Otherwise sensory is intact. SKIN: With stasis changes in the lower extremities below the knee. LYMPHATICS: There is no adenopathy. The patient has a short fat neck. LABORATORY DATA: Sodium 129, potassium 2.8, creatinine 3.77, BUN 102, GFR 18 mL/minute. Calcium was 7.7 with a magnesium of 2.6. CPK was 478 elevated with a troponin of 0.02. Albumin was 3.0 with alkaline phosphatase of 158, otherwise, liver tests were normal. BNP was 46. Cervical spine x-ray done after his traumatic fall, normal cervical spine was seen. CT scan of the brain was done; mild generalized atrophy. No mass effect. Hemoglobin 11.9, hematocrit 36, MCV 74.8 with a white count of 5.9, and platelet count 169,000. INR was 0.9 with a protime of 12.3. Glucose 133 on arrival. ASSESSMENT: 1. Orthostatic hypotension secondary to overdiuresis. 2. Dehydration. 3. Hypokalemia. 4. Muscle cramps secondary to hypokalemia and to use of the statin drug likely. 5. End-stage renal disease. The BUN is now 100 but this is likely from overdiuresis. His creatinine clearance is still above 10. I am going to go ahead and consult Dr. Amador since he has an appointment to see him so quickly and see if other interventions may need to be made while the patient is here on observation. 6. Diabetes type 2. Blood sugar is better here than at home. He has had some weight loss from 260 down to 230 on his dry weight. 7. Obesity with voluntary weight loss 310, down to a dry weight 260, down to new dry weight of 230 with dieting. 8. History of congestive heart failure, said to be diastolic in the discharge summary; however, ejection fraction 40% with normal coronary arteries on multiple catheterizations. 9. Hypertension. 10.Right bundle-branch block. 11.History of pancreatitis and pancreatectomy in 1995. 12.Hyperlipidemia. We will check a fasting lipid panel in the morning. Hold the atorvastatin for now because of muscle cramping and the elevated CPK but restart on the as he does have a significant history of hyperlipidemia and hypertriglyceridemia. He may need to have the triglycerides treated in preference to the cholesterol. 13.History of diverticulitis with surgical relief in 1987. PLAN: I will give him a liter of IV fluid because of the postural syncope. Replace potassium. Recheck potassium in the morning. Recheck CPK in the morning. Lipid panel. Likely discharge home if stable though we will consult Nephrology to see if other preparations for near term hemodialysis may need to be made. History And Physical [facility] [id number] [place]. [address] NAME: HENRIETTAFLORESITADARNELLDENITA WALLER JR : 71 STATUS : ADM Nikos PAT#: [id number] AGE: 41 ADM/REG DATE : 11/20/16 MR#: [id number] REPORT SERV DATE: 11/20/16 DICTATED BY: ZEE SHEEHAN DATE: 11/20/16 REPORT STATUS : Draft TRANSCRIBED BY: MANUEL DATE: 11/20/16 DB/MANUEL Zee Sheehan M.D. / [id number] CC: Bradly Andrade Jr, MD Stuart G Ginther, M.D. Jimmy Davis, M.D.
--- NOTE | ~2016-11-20 | DS ---
Discharge Summary [facility] [address] [place]. [address] NAME: DARNELL SHRESTHA JR : 71 STATUS : DIS Nikos PAT#: [id number] AGE: 41 ADM/REG DATE : 11/20/16 MR#: [id number] REPORT SERV DATE: 11/22/16 DICTATED BY: NICOLEJACNENITA PATRICK DATE: 11/21/16 REPORT STATUS : Draft TRANSCRIBED BY: MODL DATE: 11/21/16 ADMISSION DATE: 11/20/2016 DISCHARGE DATE: 11/21/2016 REASON FOR ADMISSION: This is a 41-year-old male with CKD 4, who was admitted with muscle cramps, syncope, and dehydration. The patient had apparently lost approximately 50 pounds of water weight since September on his home diuretic regimen and began having syncopal episodes and had a fall, did not sustain injury with fall, so he was asked to be admitted for observation status related to his dehydration and over diuresis. DISCHARGE DIAGNOSES: 1. Syncope secondary to dehydration and volume depletion with over diuresis. 2. Chronic kidney disease, 4. 3. Pruritus. 4. Uncontrolled diabetes. 5. Hyponatremia. HOSPITAL COURSE: 1. The patient was admitted, given IV fluids x1 liter, and all diuretics were held. The patient's orthostatic blood pressures were initially positive dropping from about 170 systolic, down to a 90 systolic. When I saw the patient today, we stood the patient up and his blood pressure was in the 130s sitting systolically and dropped only to about 124 when standing. We walked the patient around the unit and he did not have any dizziness. Renal, Dr. Gray, saw the patient while here at the hospital. Plan was to cut his torsemide dose from 100 b.i.d. to 50 b.i.d. and metolazone from 5 mg daily to 5 mg every other day; however, they wanted to hold all diuretics until 11/27/2016, and then they would follow up with him at their office and restart his diuretics. 2. CKD, 4. The patient is borderline dialysis, approaching needing hemodialysis, but currently his BUN and creatinine are at baseline with his creatinine at 3.36 and his BUN at 91. 3. Uncontrolled diabetes type 2. The patient has an A1c of 9.7, had multiple blood sugar checks here in the 400s. We have adjusted his insulin dosage at home from Levemir 30 units b.i.d. to 35 units b.i.d. and 20 units with meals to 25 units with meals and also added a sliding scale level 2 to his regimen. DISCHARGE CONDITION: Stable. DISCHARGE MEDICATIONS: 1. Coreg 25 mg p.o. b.i.d. 2. Norvasc 5 mg p.o. b.i.d. 3. Lipitor 20 mg p.o. at bedtime. 4. Gabapentin 300 mg p.o. t.i.d. 5. Apresoline 50 mg p.o. q.8 hours. 6. Levothyroxine 100 mcg p.o. daily. 7. Potassium chloride one tablet p.o. b.i.d. 8. Tradjenta 5 mg p.o. daily. Discharge Summary [address] [address] NAME: DARNELL SHRESTHA : 71 STATUS : DIS Nikos PAT#: [id number] AGE: 41 ADM/REG DATE : 11/20/16 MR#: [id number] REPORT SERV DATE: 11/22/16 DICTATED BY: JAC RIVERA DATE: 11/21/16 REPORT STATUS : Draft TRANSCRIBED BY: MANUEL DATE: 11/21/16 9. Atarax 25 mg one tablet q.8 hours p.r.n. pruritus. 10.Humalog insulin sliding scale level 2. 11.Humalog 25 units with meals. 12.Lantus 35 units subcu b.i.d. 13.Zaroxolyn 5 mg one tablet every other day, starting 11/27/2016. 14.Demadex 50 mg p.o. every other day, starting 11/27/2016. DISCHARGE PLAN: The patient is discharged home. Follow up with Nephrology in two weeks, and with primary care, Kimberly Randall. DICTATED BY: CHIDI Dunlap/MANUEL Jac Rivera APN / [id number] CC: Jaziel Parry M.D. Kimberly Gary Jr, M.D.
[~2016-11-20 06:44] MED LIST changes: +APRES50 PO; +BEN25 PO; +DURICEF; +KDUR20 PO; +PCET
[2016-11-20 06:50] LABS: BASOPHILS 0.4 %; BASOPHILS ABSOLUTE 0.02 10/3/uL (0.0-0.16); EOSINOPHILS 2.8 %; EOSINOPHILS ABSOLUTE 0.14 10/3/uL (0.0-0.53); ER CBC TAT 0 Hrs 07 Mins; IMMATURE GRANULOCYTES 0.6 %; IMMATURE GRANULOCYTES ABSOLUTE 0.03 10/3/uL (0.0-0.11); LYMPHOCYTES ABSOLUTE 1.26 10/3/uL (0.67-4.30); MEAN CORPUSCULAR VOLUME 74.8 fL (80-100); MEAN PLATELET VOLUME 9.4 fL (9.2-13.0); MONOCYTES 13.5 %; MONOCYTES ABSOLUTE 0.68 10/3/uL (0.21-1.20); NEUTROPHILS 57.7 %; NEUTROPHILS ABSOLUTE 2.91 10/3/uL (2.02-8.40); PLATELET COUNT 169 10/3/uL (150-400); RBC DISTRIBUTION WIDTH 21.1 % (12.0-16.0)
[2016-11-20 06:51] LABS: HEMATOCRIT 36.6 % (40.0-51.0); HEMOGLOBIN 11.9 g/dL (13.6-17.8); MANUAL DIFF NO %; MEAN CORPUS HGB CONC 32.5 g/dL (32.0-36.0); MEAN CORPUSCULAR HEMOGLOB 24.3 pg (26.0-34.0); RED CELL COUNT 4.89 10/6/uL (4.7-6.1)
[2016-11-20 06:55] LABS: INTERNATIONAL NORMAL RATI 0.9 UNITS (-); PARTIAL THROMBO TIME 23.2 SEC (22.5-37.2)
[2016-11-20 06:56] LABS: PROTIME (NOT ORD) 12.3 SEC (12.0-14.5)
[2016-11-20 07:07] LABS: TOTAL BILIRUBIN 0.4 MG/DL (0-1.2); TOTAL PROTEIN 7.8 G/DL (6.0-8.5)
[2016-11-20 07:09] LABS: CHEST PAIN PROFILE TAT 0 Hrs 26 Mins; CHLORIDE, SERUM 88 MMOL/L (96-112); CO2 (CARBON DIOXIDE) 27 MMOL/L (24-34); SODIUM, SERUM 129 MMOL/L (135-148); TROPONIN I 0.02 NG/ML (<0.05)
[2016-11-20 07:10] LABS: ALKALINE PHOSPHATASE 158 U/L (45-117); DIRECT BILIRUBIN < 0.1 MG/DL (0.0-0.4); INDIRECT BILIRUBIN(NOT ORDER) 0.3 MG/DL (0.1-0.9); POTASSIUM, SERUM 2.8 MMOL/L (3.5-5.3); SGOT(AST) 29 U/L (5-40); SGPT(ALT) 31 U/L (5-65)
[2016-11-20 07:11] LABS: BUN (BLOOD UREA NITROGEN) 102 MG/DL (6-23); CALCIUM, SERUM 7.7 MG/DL (8.5-10.4); CPK 478 U/L (0-200); CREATININE 3.77 MG/DL (0.70-1.30); GFR AFRICAN AMERICAN 21 ML/MIN (>=60); GFR NON AFRICAN AMERICAN 18 ML/MIN (>=60); GLUCOSE, SERUM 144 MG/DL (60-99)
[2016-11-20] MEDS ORDERED: TRADJENTA5 MG PO (08:44)
[2016-11-20 10:34] LABS: BUN (BLOOD UREA NITROGEN) 98 MG/DL (6-23); CALCIUM, SERUM 7.7 MG/DL (8.5-10.4); CHLORIDE, SERUM 91 MMOL/L (96-112); CO2 (CARBON DIOXIDE) 28 MMOL/L (24-34); CREATININE 3.64 MG/DL (0.70-1.30); GFR AFRICAN AMERICAN 22 ML/MIN (>=60); GFR NON AFRICAN AMERICAN 19 ML/MIN (>=60); GLUCOSE, SERUM 212 MG/DL (60-99); POTASSIUM, SERUM 3.1 MMOL/L (3.5-5.3); SODIUM, SERUM 131 MMOL/L (135-148)
[2016-11-20 16:37] LABS: BUN (BLOOD UREA NITROGEN) 99 MG/DL (6-23); CALCIUM, SERUM 7.5 MG/DL (8.5-10.4); CHLORIDE, SERUM 90 MMOL/L (96-112); CO2 (CARBON DIOXIDE) 29 MMOL/L (24-34); CREATININE 3.79 MG/DL (0.70-1.30); GFR AFRICAN AMERICAN 21 ML/MIN (>=60); GFR NON AFRICAN AMERICAN 18 ML/MIN (>=60); POTASSIUM, SERUM 3.4 MMOL/L (3.5-5.3); SODIUM, SERUM 130 MMOL/L (135-148)
[2016-11-20 16:38] LABS: GLUCOSE, SERUM 358 MG/DL (60-99)
[2016-11-20 20:54] LABS: BUN (BLOOD UREA NITROGEN) 98 MG/DL (6-23); CALCIUM, SERUM 7.5 MG/DL (8.5-10.4); CHLORIDE, SERUM 93 MMOL/L (96-112); CO2 (CARBON DIOXIDE) 27 MMOL/L (24-34); GFR AFRICAN AMERICAN 23 ML/MIN (>=60); GFR NON AFRICAN AMERICAN 20 ML/MIN (>=60); SODIUM, SERUM 131 MMOL/L (135-148)
[2016-11-20 20:55] LABS: GLUCOSE, SERUM 258 MG/DL (60-99)
[2016-11-21 04:09] LABS: BASOPHILS 0.2 %; BASOPHILS ABSOLUTE 0.01 10/3/uL (0.0-0.16); EOSINOPHILS 2.5 %; EOSINOPHILS ABSOLUTE 0.15 10/3/uL (0.0-0.53); HEMATOCRIT 35.9 % (40.0-51.0); HEMOGLOBIN 11.3 g/dL (13.6-17.8); IMMATURE GRANULOCYTES 0.3 %; IMMATURE GRANULOCYTES ABSOLUTE 0.02 10/3/uL (0.0-0.11); LYMPHOCYTES 21.7 %; LYMPHOCYTES ABSOLUTE 1.29 10/3/uL (0.67-4.30); MEAN CORPUS HGB CONC 31.5 g/dL (32.0-36.0); MEAN CORPUSCULAR HEMOGLOB 24.4 pg (26.0-34.0); MEAN PLATELET VOLUME 9.9 fL (9.2-13.0); MONOCYTES ABSOLUTE 0.77 10/3/uL (0.21-1.20); NEUTROPHILS 62.3 %; PLATELET COUNT 151 10/3/uL (150-400); RBC DISTRIBUTION WIDTH 21.5 % (12.0-16.0); RED CELL COUNT 4.63 10/6/uL (4.7-6.1); WHITE BLOOD CELLS 5.9 10/3/uL (4.5-10.5)
[2016-11-21 04:12] LABS: MANUAL DIFF NO %; MEAN CORPUSCULAR VOLUME 77.5 fL (80-100)
[2016-11-21 04:41] LABS: BUN (BLOOD UREA NITROGEN) 91 MG/DL (6-23); CALCIUM, SERUM 7.4 MG/DL (8.5-10.4); CHLORIDE, SERUM 93 MMOL/L (96-112); CHOL/HDL RATIO(NOT ORDER) 9.5 (0-5); CHOLESTEROL 237 MG/DL (< 200); CO2 (CARBON DIOXIDE) 29 MMOL/L (24-34); CPK 501 U/L (0-200); CREATININE 3.36 MG/DL (0.70-1.30); GFR AFRICAN AMERICAN 25 ML/MIN (>=60); GFR NON AFRICAN AMERICAN 21 ML/MIN (>=60); GLUCOSE, SERUM 405 MG/DL (60-99); HDL CHOLESTEROL 25 MG/DL (> 39); NON-HDL CHOLESTEROL 212 MG/DL (< 160); POTASSIUM, SERUM 3.6 MMOL/L (3.5-5.3); SODIUM, SERUM 131 MMOL/L (135-148); TRIGLYCERIDE 1765 MG/DL (< 150)
[2016-11-21] MEDS ORDERED: AT25 PO (12:38)
[2016-11-21] MEDS ORDERED: LEVEMIR SC (12:40)
[2016-11-21] MEDS ORDERED: NOVOLOG SC (12:48)
[2016-11-21] MEDS ORDERED: HUMALOGPEN SC (12:51)
[2016-11-21] MEDS ORDERED: Z5 PO ×2 (12:53→15:33)
[2016-11-21] MEDS ORDERED: DEMA100 PO (12:55)
== END 2016-11-21 16:41 | disposition home or self-care (01) ==
LOC: ER 06:44 → CDU1 08:06 → CDU2 08:21
PROVIDERS: Emergency Medicine; Internal Medicine
DX: E86.0 Dehydration (principal); E87.6 Hypokalemia; R55 Syncope and collapse; E11.9 Type 2 diabetes mellitus without complications; E66.9 Obesity, unspecified; I50.9 Heart failure, unspecified; I45.10 Unspecified right bundle-branch block; D64.9 Anemia, unspecified; I95.1 Orthostatic hypotension; E78.5 Hyperlipidemia, unspecified; E11.22 Type 2 diabetes mellitus with diabetic chronic kidney disease; N18.4 Chronic kidney disease, stage 4 (severe); I13.0 Hypertensive heart and chronic kidney disease with heart failure and stage 1 through stage 4 chronic kidney disease, or unspecified chronic kidney disease; Z79.899 Other long term (current) drug therapy
CPT/HCPCS: 70450; 71010; 72125; 80048; 80061; 80076; 82550; 82962; 83735; 83880; 84484; 85025; 85610; 85730; 93005; 93880; 96365; 96366; 96372; 96375; 96376; 99285; A9270-GY; G0378; J1170; J2405